=== PATIENT | female | born 2000 | race Caucasian/White ===

== ENCOUNTER 2024-04-03 22:03 | Inpatient (IN) | payer BC ==
[~2024-04-03] VITALS: Ht 165.1 cm; Wt 126.5 kg
[2024-04-03] MEDS ORDERED: methylPREDNISolone Sod Succ 125 MG/2 ML VIAL IM ONE (22:15)
[2024-04-03] MEDS ORDERED: Albuterol/Ipratropium 3 MG-0.5 MG/3 ML Neb Soln IH ONE (22:15)
[2024-04-03] MEDS ORDERED: Albuterol/Ipratropium 3 MG-0.5 MG/3 ML Neb Soln IH SCH (22:30)
[2024-04-04] VITALS (11 sets, daily range): BP systolic 95–142; BP diastolic 67–87; PULSE 66–84; TEMP 97.5–98.4
[2024-04-04] MEDS ORDERED: Iohexol 350 - 100 ML VIAL IV ONE (00:05)
[2024-04-04] MEDS ORDERED: NS 50 ML IV SCH (00:05)
[2024-04-04] MEDS ORDERED: Azithromycin 500 MG in NS 250 ML IV ONE (01:15)
[2024-04-04] MEDS ORDERED: Magnesium Sulfate 4% 50 ML IV ONE (01:15)
[2024-04-04] MEDS ORDERED: Albuterol 0.083% Neb Soln 2.5 MG/3 ML UD IH SCH (01:15)
[2024-04-04] MEDS ORDERED: SINGULAIR 110 MG/TAB PO (02:11)
[2024-04-04] MEDS ORDERED: Ondansetron 4 MG/2 ML VIAL IV PRN (02:15)
[2024-04-04] MEDS ORDERED: Acetaminophen 325 MG TAB PO PRN (02:15)
[2024-04-04] MEDS ORDERED: NS 1,000 ML IV SCH (02:15)
[2024-04-04] MEDS ORDERED: Albuterol/Ipratropium 3 MG-0.5 MG/3 ML Neb Soln IH PRN (02:15)
[2024-04-04] MEDS ORDERED: CYMBALTA 60MG60 MG PO (02:23)
[2024-04-04] MEDS ORDERED: 00186-0370-20 IH (02:41)
[2024-04-04] MEDS ORDERED: PROAIR HFA0.09 MG/AC IH (02:42)
[2024-04-04] MEDS ORDERED: RT ADVAIR HFA 2312 G IH (02:42)
[2024-04-04] MEDS ORDERED: WELLBUTRIN XL300 M1 PO (02:43)
[2024-04-04] MEDS ORDERED: ALBUTEROL0.83 MG/ML IH (02:43)
[2024-04-04 03:38] LABS: HEMATOCRIT 45.8 % (37.0-47.0); HEMOGLOBIN 15.9 g/dl (12.5-16.0); MEAN CELL VOLUME 85 fl (80.0-100.0); MEAN CORPUSCULAR HEMOGLOBIN 30 pg (27-31); MEAN CORPUSCULAR HGB CONC 35 g/dl (33.0-37.0); MEAN PLATELET VOLUME 10.9 fl (7.4-10.4); PLATELET COUNT 222 K/mm3 (130-400); RED BLOOD COUNT 5.39 M/mm3 (4.10-5.30); REDCELL DISTRIBUTION WIDTH-CV 12.3 % (11.5-14.5)
[2024-04-04 03:55] LABS: ALBUMIN 4.3 g/dL (3.5-5.0); BILIRUBIN,TOTAL 1.2 mg/dL (0.2-1.2); CALCIUM 9.1 mg/dL (8.4-10.2); CREATININE, serum 0.8 mg/dL (0.57-1.11); POTASSIUM 3.9 mEq/L (3.5-4.5); TOTAL PROTEIN 8.1 g/dl (6.2-8.1)
[2024-04-04] MEDS ORDERED: cefTRIAXone 2 G in Water For Injection,Sterile 20 ML IV SCH (04:00)
[2024-04-04 04:27] LABS: BAND 3 % (0-10); LYMPHOCYTE 2 % (20.0-51.0); NEUTROPHILS 95 % (42.0-75.2); PLATELET ESTIMATE NORMAL (NORMAL)
--- NOTE | 2024-04-04 04:34 | NUR ---
Patient arrived to the floor from the ED per cart at 0235, A/Ox4, on oxygen at 4LPM, satting 89%, Cherelle the ANNEALER at the bedside, received an order to bump it up to 5LPM, admission assessment and intake done, medrec reviewed, with IV infusing well on right antecubital, hospital policies orientated, questions answered, denies further needs, call light and personal items within reach, will continue to monitor.
[2024-04-04] MEDS ORDERED: Formoterol 20 MCG,Budesonide 0.5 MG IH SCH (07:00)
--- NOTE | 2024-04-04 07:15 | NUR ---
appears to be sleeping, in bed with eyes closed, resp quiet and easy, bedside shift report received from THUAN Redman
[2024-04-04] MEDS ORDERED: methylPREDNISolone Sod Succ 125 MG/2 ML VIAL IV SCH (08:00)
[2024-04-04] MEDS ORDERED: Albuterol/Ipratropium 3 MG-0.5 MG/3 ML Neb Soln IH SCH (08:00)
[2024-04-04] MEDS ORDERED: DULoxetine 60 MG CAP PO SCH (09:00)
[2024-04-04] MEDS ORDERED: buPROPion XL (24-HR) 150 MG TAB PO SCH (09:00)
[2024-04-04] MEDS ORDERED: dexAMETHasone 10 MG/ML VIAL IV SCH (09:00)
[2024-04-04] MEDS ORDERED: Pantoprazole 40 MG in NS 10 ML IV SCH (09:00)
--- NOTE | 2024-04-04 09:00 | NUR ---
awake sitting up in bed talking with a visitor, had breakfast and tolerated well, full assessment completed, see interventions for further info, denies needs at this time
--- NOTE | 2024-04-04 10:38 | NUR ---
Dr Salazar in to see patient, she is c/o nose hurting from the flow of O2, O2 down to 3L, cardiopulmonary notified and will add humidification
--- NOTE | 2024-04-04 10:49 | NUR ---
SW met with patient to complete intake. Patient provides she lives in [facility] with roommate. Next of kin is sister Yola Patel [phone]. Patient provides that she is independent with ADLs, does not utilize DME or home health services at this time. Patient provides that she does not have a PCP at this time. SW asked patient if she would like to be provided options for a PCP. Patient declined stating she would be obtaining a PCP when she returns to [facility]. Patient provides she did not have anyone appointed as DPOA/HC but wanted to appoint her sister Yola. DPOA documentation presented, reviewed, completed, signed and witnessed. Original copy of DPOA documentation placed in chart and copies provided to patient. Patient states that she plans to return to her home in [facility] up on discharge. SW will continue to follow. Discharge plan: home
--- NOTE | 2024-04-04 13:00 | NUR ---
sitting up in bed attempting to play video game with visitor, denies needs
--- NOTE | 2024-04-04 14:51 | NUR ---
resting in bed with family in to visit
--- NOTE | 2024-04-04 18:48 | NUR ---
bedside shift report given to THUAN Redman
--- NOTE | 2024-04-04 19:57 | NUR ---
Patient sitting up at the side of the bed, patient's family just left, assessed at this time, see shift assessment, still with INT infusing well on right forearm, flushes well, still with oxygen at 3LPM via nasal cannula, reports pain to her right lung, offered pain meds but refused, she stated it's not bad, denies further needs, call light and personal items within reach, will continue to monitor.
[2024-04-04] MEDS ORDERED: Montelukast 10 MG TAB PO SCH (21:00)
[2024-04-05 00:20] VITALS: BP_SYST 125
[2024-04-05 03:48] VITALS: BP 113/72; PULSE 50; TEMP 97.7
[2024-04-05 04:35] VITALS: BP_SYST 113
[2024-04-05 06:01] LABS: BASO % 0.3 % (0.0-2.0); EOS % 0.2 % (0.0-4.0); GRAN # 9.2 K/mm3 (1.4-6.5); GRAN % 76.9 % (42.2-75.2); HEMATOCRIT 42.2 % (37.0-47.0); HEMOGLOBIN 14.3 g/dl (12.5-16.0); LYMPH # 1.8 K/mm3 (1.2-3.4); LYMPH % 15.2 % (20.0-51.0); MEAN CELL VOLUME 88 fl (80.0-100.0); MEAN CORPUSCULAR HEMOGLOBIN 30 pg (27-31); MEAN CORPUSCULAR HGB CONC 34 g/dl (33.0-37.0); MEAN PLATELET VOLUME 11.1 fl (7.4-10.4); MONO # 0.9 K/mm3 (0.1-0.6); MONO % 7.2 % (1.7-9.3); PLATELET COUNT 227 K/mm3 (130-400); RED BLOOD COUNT 4.81 M/mm3 (4.10-5.30); REDCELL DISTRIBUTION WIDTH-CV 12.6 % (11.5-14.5)
[2024-04-05 06:20] LABS: CALCIUM 8.6 mg/dL (8.4-10.2); CREATININE, serum 0.75 mg/dL (0.57-1.11); POTASSIUM 3.9 mEq/L (3.5-4.5)
--- NOTE | 2024-04-05 07:30 | NUR ---
PATIENT SEEN AT BEDSIDE ALONGSIDE JACQUELYN ROSS. PATIENT SITTING UP IN BED ON 1L O2 VIA NC. PATIENT REPORTS MILD PAIN TO CHEST/THROAT, BUT REPORTS THAT THIS IS HER BASELINE FROM COUGHING EVERY MORNING. PATIENT DENIES ANY NEEDS. UPDATED PATIENT AND HER MOTHER (OVER THE PHONE) ON PLAN OF CARE. CALL LIGHT WITHIN REACH. CONTINUING TO MONITOR.
--- NOTE | 2024-04-05 07:30 | NUR ---
Pt. in bed speaking with her mother on speaker phone. Mother inquired about test results and diagnosis. THUAN Pandya addressed family questions. Administered scheduled meds per NOV and performed shift assessment. Noted inspiratory/expiratory wheezes to all lung fam upon auscultation. Pt. also has productive cough at this time. Pt. and family claim pt. has hx of coughing at baseline. Pt complains of pain rated 3/10 w/ cough. Pt. claims this is baseline and no analgesia was given. No further complaints or needs at this time. Pt. in bed w/ call light in reach.
[2024-04-05] MEDS ORDERED: Azithromycin 250 MG TAB PO SCH (08:00)
[2024-04-05 08:07] VITALS: BP 104/71; PULSE 76; TEMP 97.5
[2024-04-05 08:30] VITALS: BP_SYST 104
[2024-04-05] MEDS ORDERED: PROAIR HFA0.09 MG/AC IH (09:14)
[2024-04-05] MEDS ORDERED: RT ADVAIR HFA 2312 G IH (09:16)
[2024-04-05] MEDS ORDERED: MEDROL 4MG DOSPA4 MG PO (09:17)
[2024-04-05] MEDS ORDERED: DOXYCYCLINE HY100 MG PO (09:18)
--- NOTE | 2024-04-05 11:28 | NUR ---
Reviewed discharge summary w/ pt. and family at bedside and answered pt. questions. Pt. demonstrated understanding. Removed INT. Catheter tip intact. Accompanied pt. to POV.
== END 2024-04-05 11:32 | disposition home or self-care (01) | DRG 193 ==
LOC: COL.ER 22:03 → SURG 04-04 02:00 → MEDICAL 04-05 08:43
PROVIDERS: Nurse Practitioner Family; ADMIT Internal Medicine
DX: J18.9 Pneumonia, unspecified organism (principal); J96.01 Acute respiratory failure with hypoxia; J45.901 Unspecified asthma with (acute) exacerbation; Z68.43 Body mass index [BMI] 50.0-59.9, adult; F32.A Depression, unspecified; F41.9 Anxiety disorder, unspecified; E66.01 Morbid (severe) obesity due to excess calories
CPT/HCPCS: J0456; J0696; J1100; J1650; J2470; J2919; J3475; J7030; J7050; Q9967

== ENCOUNTER 2024-05-16 10:56 | Inpatient (IN) | payer BC ==
[~2024-05-16] VITALS: Ht 165.1 cm; Wt 140.9 kg
[~2024-05-16 10:56] MED LIST: 00186-0370-20 IH; ALBUTEROL0.83 MG/ML IH; CYMBALTA 60MG60 MG PO; DOXYCYCLINE HY100 MG PO; MEDROL 4MG DOSPA4 MG PO; PROAIR HFA0.09 MG/AC IH; RT ADVAIR HFA 2312 G IH; SINGULAIR 110 MG/TAB PO; WELLBUTRIN XL300 M1 PO
[2024-05-16] MEDS ORDERED: Albuterol/Ipratropium 3 MG-0.5 MG/3 ML Neb Soln IH ONE (11:15)
[2024-05-16] MEDS ORDERED: methylPREDNISolone Sod Succ 125 MG/2 ML VIAL IV ONE (11:15)
[2024-05-16 11:27] LABS: BASO # 0.1 K/mm3 (0.0-0.2); BASO % 1.1 % (0.0-2.0); EOS # 1.1 K/mm3 (0.0-0.7); EOS % 14.6 % (0.0-4.0); GRAN # 3.9 K/mm3 (1.4-6.5); GRAN % 52.2 % (42.2-75.2); HEMATOCRIT 42.9 % (37.0-47.0); LYMPH # 1.8 K/mm3 (1.2-3.4); MEAN CELL VOLUME 87 fl (80.0-100.0); MEAN CORPUSCULAR HEMOGLOBIN 30 pg (27-31); MEAN CORPUSCULAR HGB CONC 35 g/dl (33.0-37.0); MEAN PLATELET VOLUME 10.3 fl (7.4-10.4); MONO # 0.6 K/mm3 (0.1-0.6); PLATELET COUNT 225 K/mm3 (130-400); RED BLOOD COUNT 4.93 M/mm3 (4.10-5.30); REDCELL DISTRIBUTION WIDTH-CV 12.1 % (11.5-14.5)
[2024-05-16 11:43] LABS: ALBUMIN 3.9 g/dL (3.5-5.0); BILIRUBIN,TOTAL 0.7 mg/dL (0.2-1.2); CALCIUM 9.2 mg/dL (8.4-10.2); CREATININE, serum 0.8 mg/dL (0.57-1.11); POTASSIUM 3.6 mEq/L (3.5-4.5); TOTAL PROTEIN 7.2 g/dl (6.2-8.1)
[2024-05-16] MEDS ORDERED: PREDNISONE10 MG PO (12:29)
[2024-05-16] MEDS ORDERED: RT ALBUTER2.5 MG/0.5 IH (12:29)
[2024-05-16] MEDS ORDERED: BREZTRI AEROS10.7 GM IH (13:04)
[2024-05-16] MEDS ORDERED: DESYREL 50MG50 MG PO (13:05)
[2024-05-16] MEDS ORDERED: Ondansetron 4 MG/2 ML VIAL IV PRN (13:45)
[2024-05-16] MEDS ORDERED: Albuterol/Ipratropium 3 MG-0.5 MG/3 ML Neb Soln IH PRN (13:45)
[2024-05-16] MEDS ORDERED: Polyethylene Glycol 3350 17 GM PDS PO PRN (13:45)
[2024-05-16] MEDS ORDERED: Acetaminophen 500 MG TAB PO PRN (13:45)
[2024-05-16] MEDS ORDERED: Albuterol/Ipratropium 3 MG-0.5 MG/3 ML Neb Soln IH SCH (14:00)
[2024-05-16 14:25] VITALS: BP 108/76; PULSE 79; TEMP 97.7
--- NOTE | 2024-05-16 14:57 | NUR ---
PATIENT ADMITTED TO MEDICAL UNIT AT THIS TIME. ADMISSION INTAKE AND ASSESSMENT COMPLETED. MED REC UPDATED. PATIENT ORIENTED TO ROOM. PATIENT CURRENTLY ON 4L O2 VIA NC. RT ANA AT THE BEDSIDE WITH THIS RN DURING TIME OF ASSESSMENT. PATIENT COMPLAINS OF CHEST TIGHTNESS, BUT NO PAIN. UPDATED ON PLAN OF CARE. PATIENT STATES SHE HAS HAD SUICIDAL THOUGHTS WITHIN THE PAST MONTH, BUT HAS NOT PLANS TO DO ANYTHING. THIS RN NOTIFIED DR. ROGEL, SHE STATES IT IS OK TO DISCONTINUE ORDERS FOR Q15MIN CHECKS.
--- NOTE | 2024-05-16 15:13 | NUR ---
SW met with patient to complete intake and discuss discharge planning. Patient shared that she is currently residing in [place], she lives with a roommate. Patient informed SW that her PCP is in [place] in [place] and she has a sprinkling system irrigator in [place] Dr Sher. Patient [facility] of [facility] [address] [place]. Patient informed SW that current DMEs are nebulizer and has rescue inhaler and brezti inhaler. Patient reports that she is independent with ADLs. Patient has DPOA on file with her NOK listed as aircraft sales representative her sister (Yola Patel [phone]) Patient is anticipating to discharge back to her residence in [place] at this time. Discharge plan: HOME
[2024-05-16 16:00] VITALS: BP 143/86; PULSE 83; TEMP 98.1
[2024-05-16 18:38] VITALS: BP_SYST 143
[2024-05-16] MEDS ORDERED: Formoterol Neb Soln 20 MCG/2 ML UD IH SCH (19:00)
[2024-05-16] MEDS ORDERED: Budesonide Neb Susp 0.5 MG/2 ML AMP IH SCH (19:00)
[2024-05-16 19:41] VITALS: BP 129/75; PULSE 85; TEMP 98.3
[2024-05-16 20:45] VITALS: BP_SYST 129
[2024-05-16] MEDS ORDERED: traZODone 50 MG TAB PO SCH (21:00)
[2024-05-16] MEDS ORDERED: Montelukast 10 MG TAB PO SCH (21:00)
[2024-05-16] MEDS ORDERED: dexAMETHasone 10 MG/ML VIAL IV SCH (21:00)
[2024-05-16 23:37] VITALS: BP 138/68; PULSE 69; TEMP 98
[2024-05-17] VITALS (7 sets, daily range): BP systolic 114–150; BP diastolic 75–86; PULSE 64–98; TEMP 97.7–98.1
--- NOTE | 2024-05-17 06:45 | NUR ---
awake sitting up in bed, bedside shift report received from THUAN Silverio
--- NOTE | 2024-05-17 07:02 | NUR ---
UPON ENTERING ROOM PATIENT EPIRATORY WHEEZING AND USING HOME ALBUTEROL INHALER, HR 84, SPO2 ON 4 LPM 87%. AFTER STARTING MORNING DUONEB AND PULMICORT/PERFOROMIST PATIENT DOING WELL. WILL CONTINUE TO MONITOR.
--- NOTE | 2024-05-17 08:04 | NUR ---
resting in bed, full assessment completed, see interventions for further info, has ordered breakfast, denies needs at this time, Dr Prajapati in to see patient
--- NOTE | 2024-05-17 08:30 | NUR ---
sitting up and eating breakfast now,
[2024-05-17] MEDS ORDERED: buPROPion XL (24-HR) 150 MG TAB PO SCH (09:00)
[2024-05-17] MEDS ORDERED: DULoxetine 60 MG CAP PO SCH (09:00)
[2024-05-17 09:48] LABS: HEMOGLOBIN 15.1 g/dl (12.5-16.0); MEAN CELL VOLUME 87 fl (80.0-100.0); MEAN CORPUSCULAR HEMOGLOBIN 31 pg (27-31); MEAN CORPUSCULAR HGB CONC 35 g/dl (33.0-37.0); MEAN PLATELET VOLUME 10.9 fl (7.4-10.4); PLATELET COUNT 243 K/mm3 (130-400); RED BLOOD COUNT 4.94 M/mm3 (4.10-5.30); REDCELL DISTRIBUTION WIDTH-CV 12.1 % (11.5-14.5)
[2024-05-17 10:01] LABS: CALCIUM 9.4 mg/dL (8.4-10.2); CREATININE, serum 0.75 mg/dL (0.57-1.11); POTASSIUM 3.8 mEq/L (3.5-4.5)
[2024-05-17 10:13] LABS: BAND 4 % (0-10); LYMPHOCYTE 8 % (20.0-51.0); NEUTROPHILS 85 % (42.0-75.2)
--- NOTE | 2024-05-17 10:45 | NUR ---
up and sitting in chair, deneis physical needs but is concerned about having to pay for her hospital stay, she is asking to go home since she is better, states she is on her dad's insurance and he recently lost his job, talked with her about our main concern is her and her well being and she does understand this, also let her know would have child welfare social worker and/or care management come and talk with her,
--- NOTE | 2024-05-17 12:30 | NUR ---
sitting up in chair having lunch with a friend
--- NOTE | 2024-05-17 13:15 | NUR ---
she comes to the desk and informs social sciences research scientist she wants to leave, black ash worker notified Dr Ocampo,
--- NOTE | 2024-05-17 13:22 | NUR ---
I spoke with patient and she is still wanting to leave, I informed her she would need to sign AMA and she is in agreement with this, form signed and she leaves ambulatory, she does state she has an appointment with Dr Sher and a sleep study scheduled
--- NOTE | 2024-05-17 15:23 | NUR ---
Patient came to the nurses station asking to check herself out. SW spoke with patient about this as earlier her RN stated she had insurance concerns. Patient stated it's more than this, and she feels she can go home and won't be as anxious there. ALEXANDR notified RN and Hospitalist. Patient left AMA.
== END 2024-05-17 13:22 | disposition left against medical advice (07) | DRG 189 ==
LOC: COL.ER 10:56 → MEDICAL 12:57
PROVIDERS: Personal Emergency Response Attendant; ADMIT Internal Medicine
DX: J96.01 Acute respiratory failure with hypoxia (principal); J45.901 Unspecified asthma with (acute) exacerbation; Z68.43 Body mass index [BMI] 50.0-59.9, adult; F41.9 Anxiety disorder, unspecified; Z53.29 Procedure and treatment not carried out because of patient's decision for other reasons; F32.A Depression, unspecified; E66.01 Morbid (severe) obesity due to excess calories; Z20.822 Contact with and (suspected) exposure to COVID-19; D72.10 Eosinophilia, unspecified; Z79.899 Other long term (current) drug therapy; Z87.891 Personal history of nicotine dependence; Z23 Encounter for immunization
CPT/HCPCS: J1100; J1650; J2919

== ENCOUNTER 2024-07-18 11:11 | Emergency (ER) | payer SELFPAY ==
[~2024-07-18] VITALS: Ht 165.1 cm; Wt 140.9 kg
[~2024-07-18 11:11] MED LIST changes: +BREZTRI AEROS10.7 GM IH; +DESYREL 50MG50 MG PO; +PREDNISONE10 MG PO; +RT ALBUTER2.5 MG/0.5 IH
[2024-07-18 11:20] VITALS: BP 129/78; TEMP 98.2
[2024-07-18] MEDS ORDERED: PREDNISONE20 MG PO (11:37)
[2024-07-18] MEDS ORDERED: OCUFLOX OPHTH DR5 ML OS (11:37)
[2024-07-18 11:45] VITALS: PULSE 87
== END 2024-07-18 12:10 | disposition home or self-care (01) ==
LOC: COL.ER 11:11
DX: H10.9 Unspecified conjunctivitis (principal); J45.901 Unspecified asthma with (acute) exacerbation